=== PATIENT | female | born 1985 | race Caucasian/White ===

== ENCOUNTER 2016-07-28 13:51 | Emergency (ER) | payer SELFPAY ==
[2016-07-28] MEDS ORDERED: ADDERALL 30 MG30 M2 PO (15:35)
[2016-07-28] MEDS ORDERED: ADDERALL XR 3030 M1 PO (15:35)
[2016-07-28] MEDS ORDERED: VIIBRYD20 M1 PO (15:36)
== END 2016-07-28 16:26 ==
LOC: EDMED 13:51
DX: F22 Delusional disorders (principal)